=== PATIENT | male | born 1950 | race Caucasian/White ===

== ENCOUNTER 2017-08-26 10:46 | Day surgery (SDC) | payer MEDICARE, OTHER ==
[2017-08-26 12:22] LABS: POTASSIUM 4.6 mmol/L (3.5-5.1)
[2017-08-26] MEDS ORDERED: LIDOCAINE 1% (MDV) 20 ML INJ (12:55)
[2017-08-26] MEDS ORDERED: IODIXANOL LOCM 100 ML BTL (12:57)
[2017-08-26] MEDS ORDERED: FENTAnyl 50 MCG/ML VIAL (13:08)
[2017-08-26] MEDS ORDERED: MIDAZOLAM 1 MG/ML 2 ML INJ (13:08)
[2017-08-26] MEDS ORDERED: IODIXANOL LOCM 50 ML BTL ×2 (14:06→14:27)
[2017-08-26] MEDS ORDERED: HEPARIN 1000 UNITS/ML 10 ML INJ (14:58)
== END 2017-08-26 16:30 | disposition home or self-care (01) ==
LOC: SDS 10:46
DX: T82.898A Other specified complication of vascular prosthetic devices, implants and grafts, initial encounter (principal); Y84.8 Other medical procedures as the cause of abnormal reaction of the patient, or of later complication, without mention of misadventure at the time of the procedure; I12.0 Hypertensive chronic kidney disease with stage 5 chronic kidney disease or end stage renal disease; N18.6 End stage renal disease; I87.1 Compression of vein
CPT/HCPCS: 36902; 36907; 36909; 37248; 37249; 82962; 84132